=== PATIENT | female | born 1960 | race Caucasian/White ===

== ENCOUNTER 2018-01-16 17:56 | Emergency (ER) | payer SELFPAY ==
--- NOTE | 2018-01-16 18:43 | ED Physician Chart ---
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 NOW HAS PAIN WITH ANY LIFTING. PAIN I RATED AT 5/1O Historian:: Patient ED Review of Systems - Review of Systems General/Constitutional: No fever, No chills, No weight loss, No weakness, No edema, No loss of appetite Skin: No skin lesions, No rash, No bruising Head: No headache, No light-headedness Eyes: No loss of vision, No pain, No diplopia ENT: No earache, No nasal drainage, Tinnitus Neck: No neck pain, No swelling, No thyromegaly, No stiffness, No mass noted Cardio Vascular: No chest pain Pulmonary: No SOB, No cough, Other (NO HEMOPTYSIS) GI: No nausea, No vomiting, No diarrhea, No pain, Hematochezia G/U: No frequency, No hematuria Musculoskeletal: Bone or joint pain, Back pain, No back pain, Muscle pain (the trapezius muscle in the right scapular region.) Psychiatric: No prior psych history, No depression, No anxiety Neurological: No weakness, No paresthesia, No headache, No seizure, No dizziness , No confusion, No vertigo ED Past Medical History - Past Medical History Past Medical History: No significant medical hx Social History: Non Smoker, No Alcohol Employment:: EMPLOYED A NURSE [employer]. Family Medical History - Family Member Mother History Unknown: Yes Ethnicity: Living Status: Still Living ED Physical Exam - Physical Examination General/Constitutional: Awake, Well-developed, well-nourished, Alert, Non-toxic appearing, Ambulatory Other Gen/Cons comments:: THE PATIENT IS IN MILD DISTRESS THE FROM HER COMPLAINED OF INJURY RIGHT IN THE RIGHT UPPER BACK. Head: Atraumatic Other Head comments:: THE PATIENT HAS NO VISIBLE OR PALPABLE EVIDENCE OF HEAD TRAUMA Eyes: Lids, conjuctiva normal, PERRL ( SCLERA NOT ENTERIC.), EOMI Skin: Nl inspection, No rash, No skin lesions, No ecchymosis, Well hydrated, No lymphadenopathy ENMT: External ears, nose nl, TM canals nl, Nasal exam nl, Lips, teeth, gums nl , Oropharynx nl, Tonsils nl Neck: Nontender, Full ROM w/o pain, No nuchal rigidity, No bruit, No stridor Respiratory: Nl effort/Exclusion, Clear to Auscultation, No Wheeze/Rhonchi/Rales Other Respiratory comments:: BREATH SOUNDS ARE BILATERALLY EQUAL. Cardio Vascular: RRR, No murmur, gallop, rubs, NL S1 S2, Carotid/Femoral/Distal pulses equal bilaterally GI: No tenderness/rebounding/guarding, No organomegaly, No hernia, Normal BS's, Nondistended, No mass/bruits, No McBurney tenderness Other GI comments:: LATERALLY EQUAL. SCLERA NOT ENTERIC. SOFT TO PALPATION. NORMAL ARE BILATERALLY EQUAL. SCL. SCLERA NO TENDERNESS ENTERIC WITH AP OR LATERAL PELVIC COMPRESSION. Extremities: No edema Neuro/Psych: Alert/oriented, DTR's symmetric, Normal sensory exam, Normal motor strength, Judgement/insight normal, Mood normal, Normal gait, No focal deficits Other Misc comments:: GIULIANA WITH AP OR LATERAL PELVIC COMPRESSION.. THE PATIENT HAS TENDERNESS LATERAL PELVIC COMPRESSION.. THE PATIENT HAS OF THE OF THE SCAPULA. SPINE AT THE LEVEL THERE IS MILD TO MODERATE TENDERNESS TENDERNESS SOFT NORMAL BREAST IN THE RIGHT PARASPINOUS MUSCULATURE ADJACENT TO THE SCAPULA. ED Labs/Radiology/EKG Results - Lab Results Results: NO LABORATORY STUDIES WERE INDICATED. THREE VIEW PLAIN FILMS OF THE RT SHOULDER WERE NEGATIVE FOR ANY FRACTURE, DISLOCATIONS, OR A-C SEPARATION. IMPRESSION: NO ACUTE TRAUMATIC INJURIES. ED Assessment - Assessment General Assessment: CASE SUMMARY:THIS 57-YEAR-OLD FEMALE WAS AT WORK WHEN SHE SUSTAINED AN INJURY TO HER RIGHT UPPER BACK IN THE REGION OF THE SCAPULA. SHE EXPERIENCED MILD RELIEF AFTER TAKING PO IBUPROFEN. ON PHYSICAL EXAMINATION THERE WAS MUSCULAR TENDERNESS IN THE RIGHT PARASPINOUS REGION AT THE LEVEL OF THE SCAPULA. RANGE OF MOTION WAS MILDLY IMPAIRED ESPECIALLY WITH ABDUCTION. X-RAY STUDIES OF THE RIGHT SHOULDER SHOWED NO FRACTURE, NO DISLOCATION,AND NO A-C KNOW THAT HIS INVOLVEMENT HELP SEPARATION. THE PATIENT WAS PLACED IN A SHOULDER SLING AND FELT ADDITIONAL RELIEF OF SYMPTOMS. SHE WAS DISCHARGED WITH A PRESCRIPTION FOR IBUPROFEN 800 MG TO BE TAKEN UP TO EVERY EIGHT HOURS NEEDED FOR RELIEF OF PAIN. THE PATIENT WAS FURTHER ADVISED TO FOLLOW UP WITH HER EMPLOYER'S WORK COMP DEPARTMENT TO [place] FOR DETERMINATION OF WHEN TO RETURN TO WORK AND FOR ORTHOPEDIC EVALUATION. MDMM; DDX CLOSED INJURY TO RT SHOULDER: NOT CLOSED FX OF HUMERAL HEAD OR NECK. NOT OPEN FRACTURE OF RT SHOULDER BASED ON X-RAY FINDINGS. NOT SHOULDER DISLOCATION BASED ON HISTORY AND X-RAY FINDINGS. NOT AC SEPARATION BASED ON X-RAY FINDINGS AND PHYSICAL EXAM. ED Septic Shock - . Is Septic Shock (SBP<90, OR Lactate>4 mmol\L) present?: No ED Reassessment (Disposition) - Reassessment Reassessment Condition:: Unchanged, Improved - Diagnosis Diagnosis:: RIGHT SHOULDER X-RAY SPRAIN/STRAIN - Aftercare/Follow up Instructions Notes:: BRANDI ELENA CONSULTED PT ON DIAGNOSIS AND X-RAY FINDINGS. - Patient Disposition Discharge/Transfer:: Home ED Discharge Plan - Patient Disposition Admit/Discharge/Transfer: PT DISCHARGED HOME Condition at Disposition: Stable Prescriptions: RX: Ibuprofen 800 mg PO Q8H PRN #20 tablet PRN Reason: Pain (Moderate) Instructions: Shoulder Sprain, Shoulder Immobilizer Additional Instructions: Follow-up with primary MD as soon as possible. Take medication as prescribed. Use sling as instructed. Forms: Work Release Form
--- NOTE | 2018-01-17 11:03 | Diagnostic Imaging Report ---
Right shoulder (3 views) HISTORY: Pain, trauma No acute abnormalities. No fractures. No dislocation. Hypertrophic changes noted about the acromion process. IMPRESSION: 1. No acute abnormalities 2. Degenerative change
== END 2018-01-16 19:26 | disposition home or self-care (01) ==
LOC: ER 17:56
DX: S43.401A Unspecified sprain of right shoulder joint, initial encounter (principal); X50.9XXA Other and unspecified overexertion or strenuous movements or postures, initial encounter; Y93.89 Activity, other specified; Y92.89 Other specified places as the place of occurrence of the external cause; Y99.8 Other external cause status
CPT/HCPCS: 73030-TC-RT; Z7502